=== PATIENT | male | born 1960 ===

== ENCOUNTER 2018-12-13 10:30 | Inpatient (IN) | payer OTHER ==
[~2018-12-13] VITALS: Ht 172.7 cm; Wt 84.8 kg
[2018-12-13] MEDS ORDERED: LOTREL 5-40 MG1 EACH PO (12:29)
[2018-12-13] MEDS ORDERED: ATORVASTATIN CA10 MG PO (12:30)
[2018-12-15] MEDS ORDERED: ZOFRAN4 MG PO (09:04)
[2018-12-15] MEDS ORDERED: MIRALAX17 GM PO (09:04)
[2018-12-15] MEDS ORDERED: PERCOCET 5-3251 EACH PO (09:04)
[2018-12-15] MEDS ORDERED: NEURONTIN300 MG PO (09:04)
== END 2018-12-15 13:00 | disposition home or self-care (01) | DRG 355 ==
LOC: SURH 10:30 → O/R 12-15 06:47 → SURH 12-15 10:30 → O/R 12-15 13:00 → SURH 12-15 18:15
PROVIDERS: ADMIT Surgery
PROC: 0KXL0Z6 Transfer Left Abdomen Muscle, Transverse Rectus Abdominis Myocutaneous Flap, Open Approach (ICD-10-PCS; 2018-12-15)
PROC: 0KXK0Z6 Transfer Right Abdomen Muscle, Transverse Rectus Abdominis Myocutaneous Flap, Open Approach (ICD-10-PCS; 2018-12-15)
PROC: 0WUF4JZ Supplement Abdominal Wall with Synthetic Substitute, Percutaneous Endoscopic Approach (ICD-10-PCS; principal; 2018-12-15 18:15)
DX: K43.0 Incisional hernia with obstruction, without gangrene (principal); K42.0 Umbilical hernia with obstruction, without gangrene